=== PATIENT | male | born 1995 | race Asian ===

== ENCOUNTER 2017-08-22 18:15 | Emergency (ER) | payer OTHER ==
--- NOTE | 2017-08-22 18:24 | EDPHY ---
H & P Stated Complaint: Hurts with coughing especially at night. SOB. Time Seen by Provider: 08/22/17 18:24 HPI/ROS: HPI CHIEF COMPLAINT: Cough, sore throat HISTORY OF PRESENT ILLNESS: Patient is a 22-year-old male, is otherwise healthy , denies any significant medical history presents emergency room with 3 days of cough. Rather dry. But bronchitic. States it is worse at night. Additionally reports a "tickling in his chest" patient denies productive cough or fever. Denies chest pain. States that for the past 2-3 days he has had a nagging cough. Denies fever. Complains of typically in his throat but no significant sore throat. No trouble swallowing. Past Medical History: No significant medical history Past Surgical History: No significant surgical history Social History: [employer] student, denies drugs alcohol tobacco. Family History: Noncontributory ROS REVIEW OF SYSTEMS: A comprehensive 10 point review of systems is otherwise negative aside from elements mentioned in the history of present illness. Exam Constitutional appears well nontoxic no acute distress, triage nursing summary reviewed, vital signs reviewed, awake/alert. Eyes normal conjunctivae and sclera, EOMI, PERRLA. HENT posterior pharynx is normal. normal inspection, atraumatic, moist mucus membranes, no epistaxis, neck supple/ no meningismus, no raccoon eyes. Respiratory bronchitic sounding cough on exam. Faint wheezing bilaterally. Good air movement otherwise. Cardiovascular rate normal, regular rhythm, no murmur, no edema, distal pulses normal. Gastrointestinal soft, non-tender, no rebound, no guarding, normal bowel sounds, no distension, no pulsatile mass. Genitourinary no CVA tenderness. Musculoskeletal no midline vertebral tenderness, full range of motion, no calf swelling, no tenderness of extremities, no meningismus, good pulses, neurovascularly intact. Skin pink, warm, & dry, no rash, skin atraumatic. Neurologic awake, alert and oriented x 3, AAOx3, moves all 4 extremities equally, motor intact, sensory intact, CN II-XII intact, normal cerebellar, normal vision, normal speech. Psychiatric normal mood/affect. Heme/Lymph/Immune no lymphadenopathy. Differential Diagnosis: Includes but is not limited to in a particular order acute bronchitis, viral syndrome, reactive airway disease, pneumothorax, pneumonia Medical Decision Making: Plan for this patient two view chest x-ray, [place] breathing treatment to see if this improves his cough and faint wheezing. Re-evaluation: EKG interpretation by me on record in [facility] system. Impression time of EKG 1840, sinus rhythm rate of [address] elevation no ST depression no significant T-wave abnormalities. No signs of cardiac arrhythmia. Chest x-ray two view. No evidence of pneumothorax or dense pneumonia. 1936: Patient re-evaluated feels better after breathing treatment. Recommend albuterol, Mucinex, steroids for the next 5 days. Return precautions discussed with the patient understands return emergency room if develops worsening shortness of breath, cough, fever, vomiting or pain. Source: Patient - Personal History Current Tetanus Diphtheria and Acellular Pertussis (TDAP): Yes - Medical/Surgical History Hx Asthma: Yes Hx Chronic Respiratory Disease: No Hx Diabetes: No Hx Cardiac Disease: No Hx Renal Disease: No Hx Cirrhosis: No Hx Alcoholism: No Hx HIV/AIDS: No Hx Splenectomy or Spleen Trauma: No Other PMH: none - Social History Smoking Status: Never smoked Constitutional: Initial Vital Signs Temperature (C) 36.4 C 08/22/17 18:16 Heart Rate 55 L 08/22/17 18:16 Respiratory Rate 16 08/22/17 18:16 Blood Pressure 143/79 H 08/22/17 18:16 O2 Sat (%) 99 08/22/17 18:16 O2 Delivery Mode Room Air Allergies/Adverse Reactions: No Known Allergies Allergy (Unverified 03/13/15 15:15) Home Medications: Medication Instructions Recorded Hydrocortisone Acetate [Anucort-Hc] 25 mg RC BID #8 supp.rect 03/13/15 Albuterol [Proventil Inhaler HFA 1 - 2 puffs IH Q4H #1 mdi 08/22/17 (*)] guaiFENesin [Guaifenesin ER] 600 mg PO BID #14 tab.er.12h 08/22/17 predniSONE 60 mg PO DAILY #15 tab 08/22/17 Medical Decision Making - Data Points Medications Given: Discontinued Medications Albuterol/Ipratropium (Duoneb) 3 ml IH EDNOW ONE Stop: 08/22/17 18:35 Last Admin: 08/22/17 18:38 Dose: 3 ml Departure - Departure Disposition: Home, Routine, Self-Care Clinical Impression: Acute bronchitis Qualifiers: Bronchitis organism: unspecified organism Qualified Code(s): J20.9 - Acute bronchitis, unspecified Condition: Good Instructions: Acute Bronchitis (ED) Additional Instructions: 1. Stay well-hydrated drink lots of fluids. 2. Cough medicine, prednisone, albuterol as prescribed. 3. Return emergency room if there is worsening symptoms questions or concerns. Referrals: NONE *PRIMARY CARE P,. [Primary Care Provider] - As per Instructions Prescriptions: Albuterol [Proventil Inhaler HFA (*)] 1 - 2 puffs IH Q4H #1 mdi guaiFENesin [Guaifenesin ER] 600 mg PO BID #14 tab.er.12h predniSONE 60 mg PO DAILY #15 tab
[2017-08-22] MEDS ORDERED: IPRATROPIUM/ALBUTEROL 3 ML DEYVIAL IH ONE (18:34)
--- NOTE | 2017-08-22 18:43 | CPEKG ---
Heart Rate: 62 RR Interval: 968 P-R Interval: 160 QRSD Interval: 96 QT Interval: 412 QTC Interval: 419 P [place]: 58 QRS [place]: 40 T Wave [place]: 50 EKG Severity - NORMAL ECG - EKG Impression: SINUS RHYTHM Electronically Signed By: Aditya Chavez 22-Aug-2017 23:44:44
[2017-08-22 19:51] VITALS: BP 119/72
== END 2017-08-22 19:51 | disposition home or self-care (01) ==
DX: J20.9 Acute bronchitis, unspecified (principal); J45.909 Unspecified asthma, uncomplicated